=== PATIENT | female | born 1990 | race African-American/Black ===

== ENCOUNTER 2018-02-12 05:44 | Day surgery (SDC) | payer OTHER ==
[2018-02-10 13:44] VITALS: BMI 35.8
[2018-02-12] MEDS ORDERED: MIDAZOLAM HCL 2 MG/2 ML SINGLE DOSE VIAL ONE (09:40)
--- NOTE | 2018-02-12 10:06 | HP ---
Past Medical History - Primary Care Physician PCP:: Elissa Richard - Admission Chief Complaint: 27 yrs G11, P1091 , LMP 11/14/17 12 weeks gestation is diagnosed abs heart on sonogram is admitted for dialation suction curretage . sono 11.6 wks , pole with no cardiac activity . History of Present Illness: pt was seen in [address] [place] [address] she c/o bleeding light & cramping since yesterday she had last done on 08/2017 for 1 st trimester . Last pap 06/2017 nilm std neg No contraception History Source: Patient, Medical Record Limitations to Obtaining History: No Limitations - Past Medical History [employer]: No: Migraine, Seizure Cardiovascular: No: HTN Pulmonary: No: Asthma, COPD Hepatobiliary: No: Hepatitis B ...: 11 ...Para: 1 ( 12/2013 [facility] boy 7'6") ...Term: 1 ...Induced : 9 (all 1st trimester. Last ab 08/2017) ...LMP: 11/14/17 ... Weeks Gestation by Dates: 12 ...EDC by Dates: 08/23/18 ...EDC by Sono: 08/21/18 (12) Heme/Onc: Yes: Anemia Infectious Disease: No: AIDS, HIV, STD's, Tuberculosis Psych: No: Addictions, Anxiety, Bipolar, Depression, Panic - Past Surgical History Hx Myomectomy: No Hx Transabdominal Cerclage: No Additional Surgical History: 9 Induced abortions - Smoking History Smoking history: Never smoked Have you smoked in the past 12 months: No Aproximately how many cigarettes per day: 0 - Alcohol/Substance Use Hx Alcohol Use: No History of Substance Use: reports: None Home Medications - Allergies Allergies/Adverse Reactions: Allergies Allergy/AdvReac Type Severity Reaction Status Date / Time No Known Allergies Allergy Verified 02/12/18 09:51 - Home Medications Home Medications: Ambulatory Orders Prenat 115/Iron Fum/Folic/Dss [ 19 Tablet] 1 each PO DAILY 02/10/18 Physical Exam - Maternity Vital Signs: Vital Signs Temperature 98.8 F 02/12/18 09:50 Pulse Rate 77 02/12/18 09:50 Respiratory Rate 20 02/12/18 09:50 Blood Pressure 106/55 02/12/18 09:50 O2 Sat by Pulse Oximetry (%) 98 02/12/18 09:43 Selected Entries 02/10/18 13:40 Weight 222 lb Constitutional: Yes: Well Nourished, Obese Eyes: Yes: WNL HENT: Yes: WNL Neck: Yes: WNL Cardiovascular: Yes: WNL Lungs: Clear to auscultation Breast(s): Yes: WNL. 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 ) Number of Fetuses: Single Heart Rate (range): 0 - Vaginal Exam/OB Vaginal Bleediing: Light Dilatation (cm): close Effacement (%): 0 - Physical Exam ...Motor Strength: WNL Psychiatric: Yes: WNL, Alert - Labs Lab Results: Laboratory Tests 12/11/13 02/10/18 02/10/18 01:25 10:55 10:55 WBC Hgb Hct Plt Count PT with INR INR Sodium 139 Potassium 4.0 Chloride 103 Carbon Dioxide 27 BUN 10 Creatinine 0.6 Random Glucose 73 L AST 13 L ALT 25 Beta HCG, Quant 6730.7 Ur Leukocyte Esterase 2+ H Urine WBC 41 Urine WBC (Auto) 101 Urine RBC (Auto) 5 Urine Bacteria Many 02/10/18 02/10/18 10:55 10:55 WBC 8.9 Hgb 12.4 Hct 37.1 D Plt Count 311 D PT with INR 12.50 INR 1.11 Sodium Potassium Chloride Carbon Dioxide BUN Creatinine Random Glucose AST ALT Beta HCG, Quant Ur Leukocyte Esterase Urine WBC Urine WBC (Auto) Urine RBC (Auto) Urine Bacteria Laboratory Tests 02/10/18 10:55 Blood Type O POSITIVE Antibody Screen Negative Problem List - Problems (1) Missed Code(s): O02.1 - MISSED (2) 12 weeks gestation of Code(s): Z3A.12 - 12 WEEKS GESTATION OF Assessment/Plan 27 yrs g11, p1091 12 weeks , abs heart, missed ab diagnosed Plan suction D&C
[2018-02-12] MEDS ORDERED: DEXAMETHASONE SOD PHOSPHATE 4 MG/1 ML VIAL ONE (10:20)
[2018-02-12] MEDS ORDERED: ceFAZolin SODIUM 1 GM VIAL ONE (10:21)
[2018-02-12] MEDS ORDERED: ceFAZolin SODIUM 1 GM VIAL IVPB ONE (10:22)
[2018-02-12] MEDS ORDERED: LIDOCAINE HCL/PF 2% SDV 5ML VIAL ONE (10:24)
[2018-02-12] MEDS ORDERED: PROPOFOL 20 ML ONE (10:24)
[2018-02-12] MEDS ORDERED: OXYTOCIN 10 UNITS/ML VIAL ONE (10:30)
[2018-02-12] MEDS ORDERED: oxyCODONE HCL 5 MG TABLET PO PRN (10:42)
[2018-02-12] MEDS ORDERED: ACETAMINOPHEN 325 MG TABLET (FP) PO PRN (10:42)
[2018-02-12] MEDS ORDERED: IBUPROFEN 400 MG TABLET (FP) PO PRN (10:42)
--- NOTE | 2018-02-12 10:51 | OP ---
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
[2018-02-12] MEDS ORDERED: LACTATED RINGERS SOLUTION 1,000 ML IV SCH (11:00)
[2018-02-12 12:10] VITALS: TEMP 97.9
--- NOTE | 2018-02-12 12:27 | OP ---
DATE OF OPERATION: 02/12/2018 PREOPERATIVE DIAGNOSIS: Missed , 12 weeks. POSTOPERATIVE DIAGNOSIS: Missed , 12 weeks. OPERATION DONE: Dilatation, suction curettage. SURGEON: Elissa Richard MD ANESTHESIOLOGIST: Efrem Viveros MD ANESTHESIA: General. FINDINGS: This is a 27-year-old, 11, para 1-3-0-9 induced , and she has LMP on November 14, 2017, is 12 weeks' gestation. Had the sonogram on February 03, was noted an 11.6 weeks' gestation with pole in gestational sac with absent heart, and missed is diagnosed. Patient started bleeding from yesterday. PROCEDURE: Patient is taken to the operating room table, and general anesthesia was given. Lithotomy position was given. Pubis, perineum, and vagina were painted with Betadine, draped in usual manner. Pelvic examination was done. Uterus was anteverted, 12 weeks' size. Cervix was posterior, and adnexa were not palpable. Then, a weighted speculum was put. Anterior lip of the cervix was held with a single-tooth tenaculum. Uterine cavity was sounded. It was 10 cm, and the cervix dilated up to number 10 dilator. Then, number 10 suction cannula was introduced , and uterine contents were aspirated out. Cannula was removed, and curettage was done. No more tissue was obtained. Patient tolerated the procedure well, and uterine cavity was cleaned. Hemostasis verified and the instruments removed. Estimated blood loss: 150 mL. Anesthesiologist gave her 2 g of IV Ancef prior to the procedure, and IV Pitocin 20 units started after dilatation of the cervix and then IM Methergine at the end of completion of the procedure, 0.2 mg. She was transferred to the recovery room in stable condition. Sea [id number] MTDD
[2018-02-12 12:57] VITALS: BP 107/60; PULSE 74
[2018-02-13] MEDS ORDERED: ONDANSETRON 4 MG/2 ML VIAL IVPUSH PRN (10:44)
== END 2018-02-12 13:13 | disposition home or self-care (01) ==
LOC: JASU-SURG 05:44
PROVIDERS: ATTEND Obstetrics & Gynecology
PROC: 10D17ZZ Extraction of Products of Conception, Retained, Via Natural or Artificial Opening (ICD-10-PCS; principal; 2018-02-12 10:00)
DX: O02.1 Missed abortion (principal); Z3A.12 12 weeks gestation of pregnancy
CPT/HCPCS: 88305-TC; 94760

== ENCOUNTER 2019-07-15 20:50 | Emergency (ER) | payer OTHER ==
[2019-07-15 21:02] VITALS: BP 108/57; PULSE 80; TEMP 98.2; BMI 33.9
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
== END 2019-07-15 23:35 | disposition home or self-care (01) ==
LOC: JERFT 20:50 → JER 20:50
DX: V43.52XA Car driver injured in collision with other type car in traffic accident, initial encounter (principal); Y93.89 Activity, other specified; Y92.410 Unspecified street and highway as the place of occurrence of the external cause
CPT/HCPCS: 99281-25

== ENCOUNTER 2021-01-22 17:55 | Emergency (ER) | payer OTHER ==
[2021-01-22 18:13] VITALS: TEMP 98.7; BMI 32.8
[2021-01-22] MEDS ORDERED: ONDANSETRON 4 MG/2 ML VIAL IVPUSH ONE (18:54)
[2021-01-22] MEDS ORDERED: SODIUM CHLORIDE 1,000 ML IV STA (18:54)
[2021-01-22] MEDS ORDERED: ONDANSETRON 4 MG/2 ML VIAL ONE (18:56)
[2021-01-22 19:48] LABS: BASO % 0.3 % (0-2.0); HEMATOCRIT 40.3 % (32.4-45.2); HEMOGLOBIN 13.5 GM/dL (10.7-15.3); LYMPH % 25.3 % (8-40); MCH 31.2 pg (25.7-33.7); MCHC 33.6 g/dl (32.0-36.0); MEAN CELL VOLUME 93.1 fl (80-96); MEAN PLT VOLUME 8.5 fl (7.5-11.1); MONO % 8.7 % (3.8-10.2); NEUT % 65.7 % (42.8-82.8); PLATELET COUNT 367 10^3/uL (134-434); RBC 4.33 M/mm3 (3.60-5.2); RDW 12.4 % (11.6-15.6); WHITE BLOOD COUNT 13.3 K/mm3 (4.0-10.0)
[2021-01-22 20:11] LABS: ALBUMIN 4.2 g/dl (3.4-5.0); BLOOD UREA NITROGEN 11.4 mg/dL (7-18); CALCIUM 9.8 mg/dL (8.5-10.1)
[2021-01-22 20:14] LABS: CREATININE 0.7 mg/dL (0.55-1.3)
[2021-01-22 20:16] LABS: BILIRUBIN,TOTAL 0.5 mg/dL (0.2-1); TOT PROT 8.4 g/dl (6.4-8.2)
[2021-01-22 21:32] LABS: EPI CELLS 35 /uL (0-25.1); HYALINE CASTS 3 /uL (0-3.1); URINE APPEARANCE CLEAR; URINE BACTERIA 786 /uL (0-1359); URINE BILIRUBIN NEGATIVE (NEGATIVE); URINE COLOR YELLOW; URINE GLUCOSE (UA) NEGATIVE (NEGATIVE); URINE KETONE NEGATIVE (NEGATIVE); URINE LEUK ESTERASE NEGATIVE (NEGATIVE); URINE NITRITE NEGATIVE (NEGATIVE); URINE PROTEIN 1+ (NEGATIVE); URINE WBC 16 /uL (0-25.8)
[2021-01-22 21:33] LABS: HCG,QUALITATIVE URINE Negative
[2021-01-22 22:03] VITALS: BP 126/81; PULSE 86
== END 2021-01-22 22:03 | disposition home or self-care (01) ==
LOC: JER 17:55
PROC: 3E033GC Introduction of Other Therapeutic Substance into Peripheral Vein, Percutaneous Approach (ICD-10-PCS; principal; 2021-01-22)
PROC: 3E0337Z Introduction of Electrolytic and Water Balance Substance into Peripheral Vein, Percutaneous Approach (ICD-10-PCS; 2021-01-22)
DX: K52.9 Noninfective gastroenteritis and colitis, unspecified (principal)
CPT/HCPCS: 36415; 80053; 81003; 83690; 84703; 85025; 87086; 99284-25

== ENCOUNTER 2025-02-14 17:04 | Emergency (ER) | payer OTHER ==
[2025-02-14 17:36] VITALS: RESP 18; BMI 38.2
[2025-02-14 19:07] LABS: ABSOLUTE IMMATURE GRANULOCYTES 0.05 x10^3/uL (0.0-0.031); BASOPHILS # 0.03 x10^3/uL (0.01-0.08); EOSINOPHIL % 0.2 % (0.7-5.8); EOSINOPHILS # 0.02 x10^3/uL (0.04-0.36); MCHC 32.9 g/dl (32.2-35.5); MEAN CELL VOLUME 91.1 fl (79.4-94.8); MEAN PLT VOLUME 10.2 fl (9.4-12.3); MONOCYTE # 1.15 x10^3/uL (0.24-0.86); MONOCYTE % 9.1 % (4.7-12.5); RDW 12.3 % (12.1-16.8)
[2025-02-14] MEDS ORDERED: ONDANSETRON 4 MG/2 ML VIAL ONE ×2 (19:08→21:36)
[2025-02-14] MEDS: DEXTROSE 5%-NORMAL SALINE 1,000 ML IV ONE (19:15)
[2025-02-14] MEDS: ONDANSETRON 4 MG/2 ML VIAL IVPUSH ONE ×2 (19:16→21:48)
[2025-02-14 19:26] LABS: CO2 26.0 mmol/L (21-32); GLUCOSE,RANDOM 91.0 mg/dL (74-106)
[2025-02-14 19:29] LABS: CREATININE 0.8 mg/dL (0.55-1.3); SGOT/AST 17.0 U/L (15-37); SGPT/ALT 26.0 U/L (13-61)
[2025-02-14 19:31] LABS: TOT PROT 7.8 g/dl (6.4-8.2)
[2025-02-14 19:32] LABS: ALK PHOS 62.0 U/L (45-117)
[2025-02-14 20:34] LABS: HIV INTERPRETATION NEGATIVE (NEGATIVE)
[2025-02-14 20:36] LABS: HCV DIAGNOSTIC IN-HOUSE W/RFLX NON-REACTIVE (NONREACTIVE)
[2025-02-14] MEDS: PYRIDOXINE HCL (B-6) 50 MG TABLET (FP) PO ONE (22:22)
[2025-02-14 23:19] VITALS: BP 110/62; PULSE 75; TEMP 98.7
== END 2025-02-14 23:19 | disposition home or self-care (01) ==
LOC: JER 17:04
PROC: 3E033GC Introduction of Other Therapeutic Substance into Peripheral Vein, Percutaneous Approach (ICD-10-PCS; principal; 2025-02-14)
PROC: 3E033GC Introduction of Other Therapeutic Substance into Peripheral Vein, Percutaneous Approach (ICD-10-PCS; 2025-02-14)
PROC: 3E033GC Introduction of Other Therapeutic Substance into Peripheral Vein, Percutaneous Approach (ICD-10-PCS; 2025-02-14)
DX: O21.9 Vomiting of pregnancy, unspecified (principal); Z3A.01 Less than 8 weeks gestation of pregnancy
CPT/HCPCS: 36415; 76817-TC; 80053; 83735; 84702; 85025; 86803; 87389; 93005; 93010; 99285-25